=== PATIENT | male | born 1965 | race African-American/Black ===

== ENCOUNTER 2016-07-02 19:02 | Emergency (ER) | payer MEDICAID ==
[~2016-07-02] VITALS: Ht 170.2 cm; Wt 74.0 kg
[2016-07-02 23:25] VITALS: BP 124/79
== END 2016-07-03 00:15 | disposition home or self-care (01) ==
LOC: ER 19:03
DX: I10 Essential (primary) hypertension (principal); Z88.0 Allergy status to penicillin; F17.200 Nicotine dependence, unspecified, uncomplicated; F14.10 Cocaine abuse, uncomplicated; Z76.0 Encounter for issue of repeat prescription
CPT/HCPCS: 99283